=== PATIENT | female | born 1960 | race Hispanic/Latino ===

== ENCOUNTER 2018-08-16 09:13 | Emergency (ER) | payer BC ==
[2018-08-16 09:14] VITALS: BMI 33.4
[2018-08-16 09:28] VITALS: TEMP 98
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
[2018-08-16 09:42] VITALS: RESP 18
[2018-08-16] MEDS: Albuterol-Ipratrop 3 mg / 0.5 (3 ml) UD IH SCH ×3 (09:45→10:15)
--- NOTE | 2018-08-16 09:57 | RAD ---
HISTORY: cough and sob COMPARISON: Chest x-ray performed 05/20/15 TECHNIQUE: Chest, one view. FINDINGS: LUNGS: No focal consolidation. Please note that chest x-ray has limited sensitivity for the detection of pulmonary masses. PLEURA: No significant pleural effusion identified. No definite pneumothorax . CARDIOVASCULAR: The cardiomediastinal silhouette appears within normal limits of size. No significant atherosclerotic calcification present. OSSEOUS STRUCTURES: No acute osseous abnormality identified. VISUALIZED UPPER ABDOMEN: Unremarkable. OTHER FINDINGS: None. IMPRESSION: No focal consolidation, significant pleural effusion, or definite pneumothorax identified.
[2018-08-16 10:04] LABS: VENOUS BLOOD GAS BASE EXCESS 1.7 mmol/L (0.0-2.0); VENOUS BLOOD GAS PO2 54 mm/Hg (30-55)
[2018-08-16 10:09] LABS: BASO # 0.08 K/mm3 (0.0-2.0); BASO % 1.2 % (0.0-3.0); EOS # 0.3 (0.0-0.7); GRAN # 4.26 (1.4-6.5); GRAN % 66.4 % (50.0-68.0); LYMPH # 1.1 (1.2-3.4); LYMPH % 17.1 % (22.0-35.0); MEAN CELL VOLUME 85.9 fl (80.0-105.0); MEAN CORPUSCULAR HEMOGLOBIN 29.5 pg (25.0-35.0); MEAN CORPUSCULAR HGB CONC 34.3 g/dl (31.0-37.0); MEAN PLATELET VOLUME 8.4 fl (7.0-11.0); MONO # 0.7 (0.1-0.6); MONO % 10.3 % (1.0-6.0); RBC 4.75 10^6/uL (3.5-6.1); RED CELL DISTRIBUTION WIDTH 12.4 % (11.5-14.5); WHITE BLOOD COUNT 6.4 10^3/uL (4.5-11.0)
[2018-08-16 10:11] LABS: BLOOD UREA NITROGEN 14 mg/dL (7-21); CALCIUM 9.8 mg/dL (8.4-10.5); GFR NON-AFRICAN AMERICAN > 60
[2018-08-16 10:22] LABS: B-TYPE NATRIURETIC PEPTIDE 32.7 pg/mL (0-450); TROPONIN I < 0.01 ng/mL
[2018-08-16 10:29] LABS: D DIMER < 200 ng/mlDDU (0-243); INR 0.98; PARTIAL THROMBOPLASTIN TIME 22.8 Seconds (25.1-36.5); PROTHROMBIN TIME 11.3 SECONDS (9.4-12.5)
[2018-08-16] MEDS ORDERED: Sodium Chloride 0.9% 1,000 ML IV STA (11:07)
--- NOTE | 2018-08-16 11:36 | CARD ---
APPROVED REPORT Date of service: 08/16/2018 EKG Measurement Heart [id number] <Conclusion> Sinus tachycardia Low voltage limb leads Prolonged QTc, new
[2018-08-16 12:39] LABS: VENOUS BLOOD GAS BASE EXCESS -1.3 mmol/L (0.0-2.0); VENOUS BLOOD GAS PO2 47 mm/Hg (30-55); VENOUS BLOOD PH 7.34 (7.32-7.43)
[2018-08-16 13:37] VITALS: BP 123/78; PULSE 98; O2SAT 99
== END 2018-08-16 13:38 | disposition home or self-care (01) ==
LOC: ED 09:13
DX: J45.901 Unspecified asthma with (acute) exacerbation (principal)
CPT/HCPCS: 71045; 80048; 82550; 82803; 83615; 83735; 83880; 84484; 85025; 85378; 85610; 85730; 87040; 93005; 94640; 96361; 96374; 99285; J2930; J7030